=== PATIENT | male | born 1970 | race Caucasian/White ===

== ENCOUNTER 2019-03-11 20:56 | Emergency (ER) | payer SELFPAY ==
[~2019-03-11] VITALS: Ht 167.6 cm; Wt 104.3 kg
--- NOTE | ~2019-03-11 | EKG ---
[place], [place] ELECTROCARDIOGRAM REPORT NAME: BRAD REYES UNIT #: [id number] ROOM: DOCTOR: EPIPHCOLIN DRAFT REPORT BIRTHDATE: [birth year] [facility] Test Date: 2019-03-11 Test Time: 21:00:45 Pat Name: BRAD REYES Department: er Room: Gender: Pole Classifier: : [id number] Requested By: ANNIE RAMON Order Number: [id number] Reading MD: Neli Snow MD Measurements Intervals [place] Rate: 66 P: 68 MN: 184 QRS: 65 QRSD: 111 T: 88 QT: 401 QTc: 421 Interpretive Statements Sinus arrhythmia Probable left atrial enlargement Inferoposterior infarct, acute (RCA) Lateral leads are also involved Probable RV involvement, suggest recording right precordial leads Electronically Signed On 03-13-2019 9:07:28 PDT by Neli Snow MD CM:EKGRPT:ELECTROCARDIOGRAM REPORT [id number] ANNIE CASSIDY DRAFT REPORT ANNIE RAMON DO
== END 2019-03-11 21:45 | disposition short-term general hospital (02) ==
LOC: ED 20:56
DX: I21.3 ST elevation (STEMI) myocardial infarction of unspecified site (principal)